=== PATIENT | female | born 1965 | race Caucasian/White ===

== ENCOUNTER 2019-03-27 08:08 | Outpatient (CLI) | payer OTHER | END 2019-03-27 08:13 | disposition home or self-care (01) | LOC: EKG 08:08 | DX: I10 Essential (primary) hypertension (principal); R10.9 Unspecified abdominal pain ==

== ENCOUNTER 2019-04-07 12:52 | Inpatient (IN) | payer OTHER ==
[~2019-04-07] VITALS: Ht 154.9 cm; Wt 56.2 kg
[2019-04-07] MEDS ORDERED: PROGESTERO50 MG/1 M1 IM (13:13)
--- NOTE | 2019-04-07 13:13 | NUR ---
SE RECIBE PTE AMBULANDO ALERTA Y ORIENTADA X3 QUIEN REFIERE DOLOR ABDOMINAL CONTINUO DESDE EL NARESH DE DELORES. PTE REFIERE QUE SERA SOMETIDA A REMOCION DE VESICULA POR CANDELARIA GODINEZ. PTE REFIERE QUE SE COMUNICO CON EL DR. ANTWON GODINEZ QUIEN LE INDICA QUE PASE POR ER PARA ADMITIRLA. AL MOMENTO DEL TRIAGE PTE PRESENTA VOMITOS CONSTANTES.
--- NOTE | 2019-04-07 13:57 | NUR ---
PTE EVALUADA POR EL DR HUGHES QUIEN ORDENA EL [place]. MS N DONNELL ORIENTA SOBRE EL MISMO, LO CUAL REFIERE ENTENDER, REALIZA PRUEBAS DE LABORATORIO Y ADMINISTRA MEDICAMENTOS ABRAN ORDEN MEDICA Y SIGUIENDO MEDIDAS ASEPTICAS. SONOGRAMA ABDOMINAL NOTIFICADO A PERSONAL DE TURNO.
--- NOTE | 2019-04-07 14:59 | NUR ---
AL MOMENTO DEL CAMBIO DE TUR[place], PTE SE ENCUENTRA EN AREA DE SONOGRAFIA.
[2019-04-12] MEDS ORDERED: TYLENOL EXTRA500 MG PO (08:57)
[2019-04-12] MEDS ORDERED: MIRALAX17 GM PO (08:57)
[2019-04-12] MEDS ORDERED: TRAMADOL HCL50 MG PO (08:57)
== END 2019-04-12 10:49 | disposition home or self-care (01) | DRG 417 ==
LOC: ER 12:52 → SURH 19:03 → SURG 19:03 → SURH 20:40
PROVIDERS: ADMIT Surgery
PROC: BW40ZZZ Ultrasonography of Abdomen (ICD-10-PCS; 2019-04-07)
PROC: BF37ZZZ Magnetic Resonance Imaging (MRI) of Pancreas (ICD-10-PCS; 2019-04-08)
PROC: 0FT44ZZ Resection of Gallbladder, Percutaneous Endoscopic Approach (ICD-10-PCS; principal; 2019-04-11 08:00)
DX: K80.01 Calculus of gallbladder with acute cholecystitis with obstruction (principal); K85.10 Biliary acute pancreatitis without necrosis or infection; Z78.0 Asymptomatic menopausal state

== ENCOUNTER 2019-04-13 20:07 | Emergency (ER) | payer OTHER ==
[~2019-04-13] VITALS: Ht 154.9 cm; Wt 56.2 kg
[~2019-04-13 20:07] MED LIST: MIRALAX17 GM PO; PROGESTERO50 MG/1 M1 IM; TRAMADOL HCL50 MG PO; TYLENOL EXTRA500 MG PO
== END 2019-04-14 09:02 | disposition home or self-care (01) ==
LOC: ER 20:07
DX: N13.1 Hydronephrosis with ureteral stricture, not elsewhere classified (principal); R33.8 Other retention of urine; K59.09 Other constipation; R10.32 Left lower quadrant pain

== ENCOUNTER 2020-11-23 15:54 | Outpatient (CLI) | payer OTHER | END 2020-11-23 17:08 | disposition home or self-care (01) | LOC: OFIC 805 15:54 | PROVIDERS: ATTEND Otolaryngology Otology & Neurotology | DX: J31.0 Chronic rhinitis (principal); R42 Dizziness and giddiness ==